=== PATIENT | female | born 1950 | race Caucasian/White ===

== ENCOUNTER 2022-11-09 22:22 | Emergency (ER) | payer OTHER ==
[2022-11-09 22:28] VITALS: BP 125/79; PULSE 81; RESP 18; TEMP 98.1; BMI 29.1
[2022-11-09] MEDS ORDERED: SODIUM PHOSPHATE/NA BIPHOS 133 ML ENEMA RC ONE (23:18)
[2022-11-09] MEDS ORDERED: SODIUM PHOSPHATE/NA BIPHOS 133 ML ENEMA PR ONE (23:18)
== END 2022-11-10 01:20 | disposition home or self-care (01) ==
LOC: JER 22:22
DX: K56.41 Fecal impaction (principal); R10.9 Unspecified abdominal pain
CPT/HCPCS: 74018-TC-FY; 99283-25

== ENCOUNTER 2023-03-01 23:48 | Emergency (ER) | payer OTHER ==
[2023-03-01 23:55] VITALS: BP 120/77; PULSE 76; RESP 20; TEMP 98.2
[2023-03-02] MEDS ORDERED: IBUPROFEN 400 MG TABLET (FP) PO ONE ×2 (00:39→00:49)
[2023-03-02] MEDS ORDERED: LIDOCAINE 5% TOPICAL PATCH TP ONE (01:19)
[2023-03-02] MEDS ORDERED: METHOCARBAMOL 500 MG TABLET PO ONE (01:20)
[2023-03-02] MEDS ORDERED: METHOCARBAMOL 500 MG TABLET ONE (01:45)
== END 2023-03-02 02:13 | disposition home or self-care (01) ==
LOC: JER 23:48
DX: M25.511 Pain in right shoulder (principal); M54.50 Low back pain, unspecified; M75.21 Bicipital tendinitis, right shoulder
CPT/HCPCS: 73030-TC-RT-FY; 99283-25

== ENCOUNTER 2023-04-12 21:33 | Emergency (ER) | payer OTHER ==
[2023-04-12 21:39] VITALS: BMI 33.3
[2023-04-12] MEDS ORDERED: SODIUM CHLORIDE 0.9% 500 ML INFUS.BAG IV ONE (22:35)
[2023-04-12 22:54] LABS: BASO % 0.5 % (0-2.0); EOS % 1.2 % (0-4.5); HEMATOCRIT 33.6 % (32.4-45.2); HEMOGLOBIN 10.7 GM/dL (10.7-15.3); LYMPH % 21.5 % (8-40); MCH 23.8 pg (25.7-33.7); MCHC 31.9 g/dl (32.0-36.0); MEAN CELL VOLUME 74.7 fl (80-96); MEAN PLT VOLUME 7.9 fl (7.5-11.1); MONO % 13.9 % (3.8-10.2); NEUT % 62.9 % (42.8-82.8); PLATELET COUNT 292 10^3/uL (134-434); RBC 4.49 M/mm3 (3.60-5.2); RDW 15.1 % (11.6-15.6); WHITE BLOOD COUNT 8.6 K/mm3 (4.0-10.0)
[2023-04-12 23:21] LABS: CALCIUM 8.7 mg/dL (8.5-10.1)
[2023-04-12 23:22] LABS: ALBUMIN 3.2 g/dl (3.4-5.0); BLOOD UREA NITROGEN 15.8 mg/dL (7-18)
[2023-04-12 23:25] LABS: CREATININE 0.6 mg/dL (0.55-1.3)
[2023-04-12 23:26] LABS: BILIRUBIN,TOTAL 0.3 mg/dL (0.2-1); TOT PROT 6.5 g/dl (6.4-8.2)
[2023-04-12 23:38] VITALS: TEMP 98.3
[2023-04-13 00:18] VITALS: BP 110/62; PULSE 82; RESP 15
== END 2023-04-13 01:10 | disposition home or self-care (01) ==
LOC: JER 21:33
DX: R50.81 Fever presenting with conditions classified elsewhere (principal); R05.1 Acute cough; R53.1 Weakness; U07.1 COVID-19
CPT/HCPCS: 0241U-QW; 36415; 80053; 85025; 99284-25

== ENCOUNTER 2024-08-09 00:20 | Emergency (ER) | payer OTHER ==
[2024-08-09 00:29] VITALS: BP 133/56; PULSE 71; RESP 18; TEMP 98.2; BMI 29.1
[2024-08-09] MEDS ORDERED: LIDOCAINE 4% PATCH TP ONE (05:16)
[2024-08-09] MEDS: LIDOCAINE 5% TOPICAL PATCH TP ONE (05:17)
[2024-08-09] MEDS ORDERED: IBUPROFEN 400 MG TABLET (FP) PO ONE (06:28)
[2024-08-09] MEDS ORDERED: ACETAMINOPHEN 500 MG TABLET (FP) ONE (06:28)
[2024-08-09] MEDS: IBUPROFEN 400 MG TABLET (FP) PO ONE (06:32)
[2024-08-09] MEDS: ACETAMINOPHEN 500 MG TABLET (FP) PO ONE (06:32)
[2024-08-09] MEDS ORDERED: LIDOCAINE PATCH REMOVAL MC ONE (17:00)
== END 2024-08-09 06:33 | disposition home or self-care (01) ==
LOC: JER 00:20
DX: M79.672 Pain in left foot (principal); M25.562 Pain in left knee; M25.572 Pain in left ankle and joints of left foot
CPT/HCPCS: 73560-TC-LT-FY; 73590-TC-LT-FY; 73630-TC-LT; 93971-TC; 99284-25